=== PATIENT | male | born 1955 | race Caucasian/White ===

== ENCOUNTER 2020-01-22 06:33 | Outpatient (CLI) | payer MEDICARE, SELFPAY ==
[2020-01-22 08:10] LABS: Blood Urea Nitrogen 18 mg/dL (9-20); Calcium 9.1 mg/dL (8.4-10.2); Carbon Dioxide 29 mmol/L (22-30); Chloride 100 mmol/L (98-107); Estimated Glomerular Filt Rate > 60; Glucose 95 mg/dL (75-110); Potassium 4.2 mmol/L (3.4-5.0); Sodium 134 mmol/L (137-145)
[2020-01-22 08:54] LABS: Hemoglobin A1C 5.6 % (<5.7)
[2020-01-22 09:28] LABS: Folic Acid > 20.0 ng/mL (2.76->20); Vitamin B12 > 1000.0 pg/mL (239-931)
[2020-01-27 18:31] LABS: Homocysteine 7.9 umol/L (<11.4)
== END 2020-01-22 06:34 | disposition home or self-care (01) ==
PROVIDERS: PCP Internal Medicine; Visit Provider Internal Medicine
DX: R73.02 Impaired glucose tolerance (oral) (principal); E72.11 Homocystinuria; E53.8 Deficiency of other specified B group vitamins
CPT/HCPCS: 36415; 80048; 82607; 82746; 83036; 83090

== ENCOUNTER 2020-07-29 06:32 | Outpatient (CLI) | payer MEDICARE, SELFPAY ==
[2020-07-29 07:43] LABS: Alanine Aminotransferase 16 U/L (4-50); Albumin Level 4.1 g/dL (3.5-5.1); Alkaline Phosphatase 48 U/L (38-126); Anion Gap 4 mmol/L (8-16); Aspartate Amino Transferase 29 U/L (17-59); Bilirubin,Total 0.7 mg/dL (0.2-1.3); Blood Urea Nitrogen 16 mg/dL (9-20); Calcium 9.2 mg/dL (8.4-10.2); Carbon Dioxide 32 mmol/L (22-30); Chloride 100 mmol/L (98-107); Cholesterol 179 mg/dL (0-200); Estimated Glomerular Filt Rate > 60; Glucose 95 mg/dL (75-110); HDL Direct 50 mg/dL; Potassium 4.5 mmol/L (3.4-5.0); Sodium 136 mmol/L (137-145); Triglycerides 103 mg/dL (<150)
[2020-07-29 07:46] LABS: Hemoglobin A1C 5.3 % (<5.7)
[2020-07-29 07:54] LABS: LDL Cholesterol Direct 94 mg/dL
[2020-07-29 08:14] LABS: Prostate Specific Antigen 1.7 ng/mL (< OR = 4.0)
[2020-07-29 08:54] LABS: Vitamin B12 > 1000.0 pg/mL (239-931)
== END 2020-07-29 06:33 | disposition home or self-care (01) ==
PROVIDERS: PCP Internal Medicine; Visit Provider Nurse Practitioner
DX: Z12.5 Encounter for screening for malignant neoplasm of prostate (principal); E78.5 Hyperlipidemia, unspecified; R73.02 Impaired glucose tolerance (oral); R53.83 Other fatigue
CPT/HCPCS: 36415; 80053; 80061; 82607; 83036; 84153; G0103

== ENCOUNTER 2021-01-24 06:31 | Outpatient (CLI) | payer MEDICARE, SELFPAY ==
[2021-01-24 07:38] LABS: Anion Gap 3 mmol/L (8-16); Blood Urea Nitrogen 18 mg/dL (9-20); Carbon Dioxide 30 mmol/L (22-30); Chloride 104 mmol/L (98-107); Cholesterol 186 mg/dL (0-200); Estimated Glomerular Filt Rate > 60; Glucose 95 mg/dL (75-110); HDL Direct 50 mg/dL; Potassium 4.3 mmol/L (3.4-5.0); Sodium 137 mmol/L (137-145); Triglycerides 83 mg/dL (<150)
[2021-01-24 07:47] LABS: Hemoglobin A1C 5.6 % (<5.7)
[2021-01-24 07:49] LABS: LDL Cholesterol Direct 102 mg/dL
[2021-01-26 19:43] LABS: Homocysteine 7.7 umol/L (<11.4)
== END 2021-01-24 06:32 | disposition home or self-care (01) ==
PROVIDERS: PCP Internal Medicine; Visit Provider Internal Medicine
DX: R73.02 Impaired glucose tolerance (oral) (principal); E78.5 Hyperlipidemia, unspecified; E53.8 Deficiency of other specified B group vitamins; E72.11 Homocystinuria
CPT/HCPCS: 36415; 80048; 80061; 82607; 83036; 83090

== ENCOUNTER 2021-07-06 06:33 | Outpatient (CLI) | payer MEDICARE, SELFPAY ==
[2021-07-06 07:43] LABS: Hemoglobin A1C 5.6 % (<5.7)
[2021-07-06 07:45] LABS: Alanine Aminotransferase 18 U/L (4-50); Albumin Level 4.2 g/dL (3.5-5.1); Alkaline Phosphatase 54 U/L (38-126); Anion Gap 5 mmol/L (8-16); Aspartate Amino Transferase 30 U/L (17-59); Bilirubin,Total 0.9 mg/dL (0.2-1.3); Blood Urea Nitrogen 20 mg/dL (9-20); Carbon Dioxide 27 mmol/L (22-30); Chloride 101 mmol/L (98-107); Cholesterol 179 mg/dL (0-200); Estimated Glomerular Filt Rate 60; Glucose 98 mg/dL (65-110); HDL Direct 54 mg/dL; Potassium 4.4 mmol/L (3.4-5.0); Sodium 133 mmol/L (137-145); Triglycerides 65 mg/dL (<150)
[2021-07-06 07:56] LABS: LDL Cholesterol Direct 93 mg/dL
[2021-07-06 08:14] LABS: Prostate Specific Antigen 2.2 ng/mL (< OR = 4.0)
== END 2021-07-06 06:34 | disposition home or self-care (01) ==
PROVIDERS: PCP Internal Medicine; Visit Provider Internal Medicine
DX: E78.5 Hyperlipidemia, unspecified (principal); R73.02 Impaired glucose tolerance (oral); Z12.5 Encounter for screening for malignant neoplasm of prostate
CPT/HCPCS: 36415; 80053; 80061; 83036; 84153; G0103

== ENCOUNTER → 2021-10-13 11:35 | Outpatient (CLI) | payer MEDICARE, SELFPAY ==
--- NOTE | ~2021-10-13 | XR_ITS ---
Lumbar spine 3 views DATE: 10/13/2021 12:07 INDICATION: Radiculopathy TECHNIQUE: AP, lateral, coned lateral lumbosacral views COMPARISON: 01/25/2015 CT abdomen pelvis FINDINGS: There is mild dextro scoliosis. There is diffuse osteopenia. There is a transitional lumbosacral vertebra. There is moderately severe degenerative disc disease at L4-5 and on the left at L3-4. There is minimal retrolisthesis at L3-4. No fracture or bone destruction of the lumbar spine is evident. No spondylolisthesis. Sacroiliac join ts are intact. IMPRESSION: Osteopenia Mild dextroscoliosis Transitional lumbosacral vertebra Multi-level degenerative disc disease Reviewed, dictated and finalized at location A. 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
== END ==
PROVIDERS: Visit Provider Nurse Practitioner
DX: M54.10 Radiculopathy, site unspecified (principal); M85.88 Other specified disorders of bone density and structure, other site; M41.87 Other forms of scoliosis, lumbosacral region; M51.36 Other intervertebral disc degeneration, lumbar region
CPT/HCPCS: 72100

== ENCOUNTER 2021-12-05 09:19 | Outpatient (CLI) | payer MEDICARE, SELFPAY ==
--- NOTE | 2021-12-05 11:00 | NEURO_ITS ---
Impression: # Complains of twitching in the right lower extremity. # Normal nerve conduction study. # Normal needle/EMG exam with no fibs or fasciculation in muscles. # Clinical correlation recommended. Nerve Conduction Studies Anti Sensory Summary Table Stim Site NR Peak (ms) P-T Amp (?V) Site1 Site2 Delta-P (ms) Dist (cm) Tashi (m/s) Right Sup Fibular Anti Sensory (Ant Lat Mall) 14 cm 3.7 4.7 14 cm Ant Lat Mall 3.7 16.0 43 Right Sural Anti Sensory (Lat Mall) Calf 3.6 9.1 Calf Lat Mall 3.6 16.0 44 Motor Summary Table Stim Site NR Onset (ms) O-P Amp (mV) Site1 Site2 Delta-0 (ms) Dist (cm) Tashi (m/s) Right Peroneal Motor (Vastus Med) Ankle 4.4 2.4 Popit Ankle 8.2 39.0 48 Popit 12.6 1.7 Right Tibial Motor (Abd Leblanc Brev) Ankle 4.6 5.3 Knee Ankle 9.5 41.0 43 Knee 14.1 2.8 F Wave Studies NR F-Lat (ms) L-R F-Lat (ms) Right Peroneal (Mrkrs) (EDB) 50.88 Right Tibial (Mrkrs) (Abd Hallucis) 49.31 EMG Side Muscle Nerve Root Ins Act Fibs Amp Dur Recrt Comment Right AntTibialis Dp Br Fibular L4-5 Nml Nml Nml Nml Nml Right Gastroc Tibial S1-2 Nml Nml Nml Nml Nml Right Fibularis Long Sup Br Fibular L5-S1 Nml Nml Nml Nml Nml Right Flex Dig Long Tibial L5-S2 Nml Nml Nml Nml Nml Right Ext Dig Brev Dp Br Fibular L5, S1 Nml Nml Nml Nml Nml Right Ext Dig Long Dp Br Fibular L5-S1 Nml Nml Nml Nml Nml MTDD
== END 2021-12-05 09:20 | disposition home or self-care (01) ==
LOC: ANHNEURO 09:23
PROVIDERS: PCP Internal Medicine; Visit Provider Nurse Practitioner
DX: M54.10 Radiculopathy, site unspecified (principal)
CPT/HCPCS: 95886; 95908

== ENCOUNTER 2021-12-25 06:33 | Outpatient (CLI) | payer MEDICARE, SELFPAY ==
[2021-12-25 07:33] LABS: Anion Gap 4 mmol/L (8-16); Blood Urea Nitrogen 16 mg/dL (9-20); Calcium 8.5 mg/dL (8.4-10.2); Carbon Dioxide 29 mmol/L (22-30); Chloride 100 mmol/L (98-107); Estimated Glomerular Filt Rate > 60; Glucose 97 mg/dL (65-110); Sodium 133 mmol/L (137-145)
[2021-12-25 07:41] LABS: Hemoglobin A1C 5.4 % (<5.7)
[2021-12-27 20:26] LABS: Homocysteine 8.9 umol/L (<11.4)
== END 2021-12-25 06:34 | disposition home or self-care (01) ==
PROVIDERS: PCP Internal Medicine; Visit Provider Internal Medicine
DX: R73.02 Impaired glucose tolerance (oral) (principal); E72.11 Homocystinuria; E53.8 Deficiency of other specified B group vitamins
CPT/HCPCS: 36415; 80048; 82607; 83036; 83090

== ENCOUNTER 2022-02-01 08:14 | Outpatient (CLI) | payer MEDICARE, SELFPAY ==
[2022-02-01 08:54] LABS: Basophils Absolute Auto 0.1 K/mm3 (0.0-0.1); Basophils Percent Auto 0.9 % (0.2-1.2); Eosinophils Absolute Auto 0.5 K/mm3 (0-0.3); Eosinophils Percent Auto 6.5 % (0-4.4); Hematocrit 44.3 % (42.0-52.0); Hemoglobin 14.5 g/dL (14.0-18.0); Immature Granulocyte Absolute 0.03 K/mm3 (0.00-0.031); Immature Granulocyte Percent A 0.4 % (0-0.5); Lymphocytes Absolute Auto 2.63 K/mm3 (0.9-3.2); Lymphocytes Percent Auto 32.5 % (18.3-44.2); Mean Corpuscular HGB Conc 32.7 g/dl (32-36); Mean Corpuscular Hemoglobin 30.2 pg (26-34); Mean Corpuscular Volume 92.3 fl (80-100); Mean Platelet Volume 9.9 fl (7.4-10.4); Monocytes Absolute Auto 0.9 K/mm3 (0.1-0.6); Monocytes Percent Auto 10.5 % (2.6-8.5); Neutrophils Percent Auto 49.2 % (45.5-73.1); Platelet Count Result 242 k/mm3 (150-375); Red Cell Distribution Width 12.4 % (11.5-14.5); White Blood Count 8.1 K/mm3 (4.5-10.0)
== END 2022-02-01 08:15 | disposition home or self-care (01) ==
LOC: ANHSURGERY 08:18
PROVIDERS: PCP Internal Medicine; Visit Provider Surgery
DX: Z01.818 Encounter for other preprocedural examination (principal); K40.90 Unilateral inguinal hernia, without obstruction or gangrene, not specified as recurrent; K42.9 Umbilical hernia without obstruction or gangrene
CPT/HCPCS: 36415; 85025; 86850; 86900; 86901

== ENCOUNTER 2022-02-05 01:12 | Day surgery (SDC) | payer MEDICARE, SELFPAY ==
--- NOTE | 2022-01-31 10:16 | PC.NURSE ---
Report to the Outpatient Waiting Room, entrance under the green pavilion located off [facility], at time __0730 on date 02/05/22 . OR Time: __929 . - You and your visitor will be asked a series of questions to screen for COVID 19 for your protection. - Only one visitor is allowed at this time. - The patient visitor is requested to leave or wait in car when not with patient. - A mask is required within the hospital. Patients may have clear liquids (water, carbonated beverages, clear teas, apple juice) until 3 hours prior to surgery with a maximum of 20 ounces. - No food from midnight until time of surgery - Infants may have breast milk until 4 hours before surgery, infant formula 6 hours prior to surgery. - Children will be allowed to drink immediately following surgery. If applicable, please bring a bottle or sippy cup to assist with drinking. Juice, water, soda, and popsicles are readily available. For infants on formula, please bring formula the day of surgery. Pacifiers are allowed. Take the following medications with a SIP of water the morning of surgery: ____NONE Medications to discontinue per physician ALL VITAMINS AND SUPPLEMENTS 3 DAYS PRE OP Date to take last dose___02/01/22 PT STATES TOOK XARELTO 01/30/22 (TRAVELING/FLYING) DR SIMON AWARE. Please no make-up, nail welsh, hairspray, perfume, deodorant, or body powder the day of surgery. No jewelry (including any body piercings) or valuables the day of surgery, leave them at home. Please take a shower or bath the night before, or the morning of, surgery with an antibacterial soap. Wear comfortable, loose fitting clothing. Children are encouraged to wear pajamas. - Jewelry must be removed prior to entering the operating room. Rings and piercings that are not removed may be cut off. - The hospital will not accept responsibility for valuables. - Please leave all valuables, including medications, at home the day of surgery. HIBICLENS SHOWER MORNING OF SURGERY If you are going home after surgery, a licensed truck driver instructor must drive you home. - NO public transportation without another adult. - We recommend that an adult stay with you for 24 hours following discharge. - We also recommend that you do not drive, make important decision, drink alcoholic beverages, or take any drugs that were not prescribed by your health care provider for at least 24 hours after your discharge time. For Pediatric surgeries, we recommend two adults accompany the child home (only one inside the building at this time). Follow any additional instructions given to you from your surgeon. If you or anyone in your household have experienced Covid symptoms in the past week, please notify your surgeon or the nurse liaison at the phone number below for possible testing. Telephone instructions given to __PATIENT and asked if any additional questions and then verbalized understanding. Patient advised to call surgeon office or pre surgery nurse liaison [phone] if any additional questions.
[2022-01-31 10:33] VITALS: BMI 22.7
--- NOTE | 2022-02-04 21:16 | PM.HPGS ---
History of Present Illness History of Present Illness Consent: Risks, benefits, and alternatives of a left inguinal repair with mesh and open umbilical hernia repair have been discussed and questions answered. Patient agrees to proceed with procedure. Chief complaint: left inguinal hernia, umbilical hernia Narrative: Mr Tomlin is a 66 year old White male that presented to the office recently at the request of Dr Gillespie for an evaluation of a inguinal hernia. Patient reports that he first noticed pain in his left groin about 7-9 months ago. The pain was occasional and random. He reports that about 5 weeks ago he noticed a bulge for the first time when he was at the gym. He reports that the workout was a very heavy workout that lasted a few hours. He reports that he has noticed that activity makes the bulge worse. He does notice that when he puts ice over the bulge that the bulge reduces in size. He notices that the bulge becomes more prominent when standing all the time. Patient reports that he did have a history of a pulmonary embolism 5 years ago and takes Xarelto when he travels. He does not take this routinely He called the office one week ago because he had traveled and taken the Xarelto, but he was able to be off of it 48 hrs. before this planned surgery. Review of Systems Review of Systems: All systems reviewed & are unremarkable except as noted in HPI and below (HPI) Constitutional: Constitutional: Reports as per HPI, Denies chills and Denies fever(s) Eyes: Eyes: Reports no additional eye complaints ENT: Reports Normal hearing present and Denies dizziness Cardiovascular: Cardiovascular: Reports no additional cardiovascular complaints, Denies chest pain and Denies irregular heart rhythm Comments: Hx of a Pulmonary embolus in the past after traveling. Respiratory: Respiratory: Reports no additional respiratory complaints Gastrointestinal: Gastrointestinal: Reports no additional gastrointestinal complaints, Denies abdominal pain and Denies bloating Genitourinary: Genitourinary: Denies hematuria Musculoskeletal: Musculoskeletal: Denies back pain Integumentary/Breasts: Skin/Breast: Reports system reviewed and no additional complaints, except as docu Neurologic: Reports Normal hearing present, Denies Abnormal speech present, Denies confusion and Denies dizziness Psychiatric: Psychiatric: Reports no additional psychiatric complaints and Denies confusion Endocrine: Endocrine: Reports no additional endocrine complaints Hematologic/Lymphatic: Hematologic/Lymphatic: Denies easy bleeding and Denies easy bruising Allergic/Immunologic: Allergic/Immunologic: Reports no additional allergic/immunologic complaints [facility] Past Medical History Medical History Asthma History of blood clots Kidney stones Surgical History Surgical History History of ankle surgery RIGHT ANKLE Family History Family History Mother No problems noted. Father Family history of Alzheimer's disease Acute myocardial infarction Malignant neoplasm of prostate Lung cancer Sibling Patient's sister is in good health Other Family history of malignant neoplasm Social History Social History Smoking status: Never smoker Second hand tobacco smoke exposure: No Alcohol intake: current Drinks per week: 3 Alcohol use details: social Substance use: never Substance use type: does not use Living arrangements: alone Spiritual care concerns: No Meds Home Medications and Allergies Home Medications Medication Instructions Recorded Confirmed Type aspirin 81 mg tablet,delayed 81 mg PO DAILY 10/07/19 02/05/22 History release folic acid 1 mg tablet 1 mg PO DAILY 02/01/21
[2022-02-05] VITALS (10 sets, daily range): BP systolic 115–142; BP diastolic 62–89; PULSE 61–73; RESP 12–20; TEMP 36.1; O2SAT 100
[2022-02-05] MEDS: ACETAMINOPHEN 500 MG TABLET 1000 MG PO (09:09)
[2022-02-05] MEDS: KETOROLAC 15 MG/ML VIAL (*BKC) IV PUSH (09:10)
[2022-02-05] MEDS: LACTATED RINGERS 1,000 ML 30 ML IV CONT ×3 (09:10→13:20)
--- NOTE | 2022-02-05 09:41 | WPDHPUPDATE1 ---
History and Physical Update Update Date/Time: 02/05/22 09:41 History and Physical has been reviewed, including an updated exam of the patient. There are NO changes in the patient's condition. Risks, benefits, and alternatives have been discussed and questions answered. Patient agrees to proceed with procedure.
--- NOTE | 2022-02-05 09:42 | WPDANESEPPF ---
Anes - Initial Pre Proc Eval Procedure: Operation Date: 02/05/22 10:30 Proposed Procedures p Laparoscopic Left Inguinal Hernia Repair with Mesh, - Salvador Castano MD s Suture Repair of Small Umbilical Hernia - Salvador Castano MD Date/Time: 02/05/22 09:42 Surgeon: Salvador Castano MD Pre Op Diagnosis: left inguinal hernia, umbilical hernia Patient Data Age: 66 Gender: M Height: 1.7 m Weight: 67.15 kg Last Vital Signs Temp 36.1 C L 02/05/22 08:35 Pulse 73 02/05/22 08:35 Resp 18 02/05/22 08:35 BP 120/78 02/05/22 08:35 Pulse Ox 100 02/05/22 08:35 Allergies Allergy/AdvReac Type Severity Reaction Status Date / Time [place] Allergy Unknown Sneezing Uncoded 02/05/22 08:47 Home Medications Medication Instructions Recorded Confirmed Type aspirin 81 mg tablet,delayed 81 mg PO DAILY 10/07/19 02/05/22 History release folic acid 1 mg tablet 1 mg PO DAILY 02/01/21 02/05/22 History sildenafil 100 mg tablet 100 mg PO DAILY PRN #12 tablet 03/29/21 02/05/22 Rx valacyclovir 1 gram tablet 2,000 mg PO Q12H PRN #30 tablet 11/07/21 02/05/22 Rx multivitamin 1 tablet PO DAILY 01/03/22 02/05/22 History omega 7-qhj-bpa-fish oil 60 mg-90 1 cap PO DAILY 01/03/22 02/05/22 History mg-500 mg capsule rivaroxaban 2.5 mg tablet 2.5 mg PO BID 01/03/22 02/05/22 History Patient hx anesthesia problems: none Family hx anesthesia problems: none Results Review: All pre-operative results and documents have been reviewed as part of the pre-operative evaluation. [facility] Past Medical History Medical History Asthma History of blood clots Kidney stones Surgical History Surgical History History of ankle surgery RIGHT ANKLE Family History Family History Mother No problems noted. Father Family history of Alzheimer's disease Acute myocardial infarction Malignant neoplasm of prostate Lung cancer Sibling Patient's sister is in good health Other Family history of malignant neoplasm Social History Social History Smoking status: Never smoker Second hand tobacco smoke exposure: No Alcohol intake: current Drinks per week: 3 Alcohol use details: social Substance use: never Substance use type: does not use Living arrangements: alone Spiritual care concerns: No Anes - Eval Final PreProcedure Day of Procedure 02/05/22 09:42 Patient weight: normal Heart: regular rate and rhythm Lungs: clear to auscultation Airway: Mallampati scale class II Neurological: alert and oriented Last oral intake: >/= 8 hours ASA classification: II Emergent: no Anesthetic plan: proceed Anesthesia type and monitoring: general ETT and standard monitoring Results Review: All pre-operative results and documents have been reviewed as part of the pre-operative evaluation. Informed Consent: The patient's anesthetic plan and its attendant risks and benefits were discussed with the patient/family/POA. Questions were solicited and answers provided to the satisfaction of the patient/family/POA.
[2022-02-05] MEDS: ceFAZolin 2 GM/D5W 50 ML 2 GM/50 ML BAG IVPB (09:58)
[2022-02-05] MEDS: LIDO 2%/EPINEPHRINE 1:100,000 20 ML VIAL INFILTRATE (10:04)
--- NOTE | 2022-02-05 14:16 | W.PM.PROC2 ---
Procedure Note - Detailed Date of Procedure 02/05/22 Pre-op Diagnosis left inguinal hernia, umbilical hernia Post-op Diagnosis Other (1. unilateral left Direct & Indirect inguinal hernia. 2. umbilical hernia 3. Asymptomatic hypospadias) Procedure Performed 1. laparoscopic totally extraperitoneal left inguinal hernia repair with mesh 2. Open umbilical hernia repair with sutures Surgeon Salvador Castano MD Screen Writer LULI Godinez ,[place] first sampler Anesthesia General Indications Bulging and pain on the left groin. Also on office exam a small umbilical hernia was noted and since it was right where we needed to make one of the incisions to fix his left inguinal hernia, the patient wanted to have it repaired at the same time. Findings Patient had a small approximately 8 mm umbilical fascial defect with some preperitoneal fat coming up into the hernia. Patient had a small direct and a larger indirect left inguinal hernia. Upon placing the Mack catheter was noted that the patient has some element of hypospadias. Description of Procedure After appropriate marking of the operative site prior to surgery, the patient was taken to the operating room. After induction of adequate general endotracheal anesthesia by [facility] staff, the patient was carefully prepped and draped in a sterile fashion. Prior to prep and drape a Mack catheter was placed to keep the bladder collapsed. (In this patient it was noted that the meatus was quite inferior. He had not previously told me that he knew that he had some element of hypospadia CIS. Because of this I asked 1 of our urologist to step in and check the Mack catheter and the tip of the penis. He agreed that it was high post medius and that there was a small pit where the opening often would be but at the patient's current age of 66 without previous problems nothing needed to be done). A time-out was performed confirming the procedure and site of surgery on the left. Following this, local anesthetic was infiltrated into the umbilical area and a horizontal incision was made through the umbilicus right over the center of the obvious small hernia at its base. We then carefully dissected the upper part of the hernia sac from surrounding subcutaneous tissues and skin. Then we left this alone and used S retractors to expose the anterior rectus sheath just to the left of midline at the level of this incision. I carefully dissected down to the the anterior rectus sheath on the left and then made a 1 cm vertical slit in the fascia just off the midline. The rectus muscle was retracted to left and then just in front of the posterior rectus sheath, a round dissecting balloon was passed onto the pubic bone. After placing slight pressure on the right groin area, this was insufflated with 20 pumps, while watching with the 0 degree laparoscope. It appeared that I was in the proper plane. Following this, the dissecting balloon was removed and replaced by a 100 mm Nguyen cannula with a circular 30 cc conforming balloon. Following this, the 0 degree laparoscope was used to carefully place two 5mm [employer] slim trocars, just to the right of midline. One suprapubic and other one skilled nursing between the umbilicus and the pubic bone. Then tedious dissection occurred in the preperitoneal space using blunt and sharp dissection exposing the James's ligament, the cord structures, the muscular tissue anteriorly, and the retroperitoneum. there appeared to be both a small direct hernia medial to the epigastric vessels and a medium-sized indirect hernia sac exiting lateral to the epigastric vessels. This Bladder indirect sac was then able to be dissected back and we could visualize the posterior peritoneum. I then dissected up to the level of the umbilicus and it was ready for mesh placement. inspecting the area there appeared to be some clotted blood pulling posteriorly. Therefore a 5 mm scope was obtained we placed this through 1 of
== END 2022-02-05 15:40 | disposition home or self-care (01) ==
PROVIDERS: PCP Internal Medicine; Visit Provider Surgery
PROC: (CPT 49650; principal; 2022-02-05 10:30)
PROC: (CPT 49650; 2022-02-05 10:30)
DX: K40.90 Unilateral inguinal hernia, without obstruction or gangrene, not specified as recurrent (principal); K42.9 Umbilical hernia without obstruction or gangrene; Q54.1 Hypospadias, penile; Z79.82 Long term (current) use of aspirin; J45.909 Unspecified asthma, uncomplicated; M47.9 Spondylosis, unspecified; Z86.711 Personal history of pulmonary embolism
CPT/HCPCS: 49650; 36415; 85025; 86850; 86900; 86901; 88302; A9270; C1727; C1781; J0330; J0690; J1170; J1885; J2250; J2704; J2710; J3010; J7120

== ENCOUNTER 2022-03-12 07:04 | Outpatient (CLI) | payer MEDICARE, SELFPAY ==
[2022-03-12 08:21] LABS: Prostate Specific Antigen 2.6 ng/mL (< OR = 4.0)
== END 2022-03-12 07:05 | disposition home or self-care (01) ==
LOC: ANHLAB 07:06
PROVIDERS: PCP Internal Medicine; Visit Provider Urology
DX: Z12.5 Encounter for screening for malignant neoplasm of prostate (principal)
CPT/HCPCS: 36415; 84153; G0103

== ENCOUNTER 2022-04-30 09:00 | Outpatient (RCR) | payer MEDICARE, SELFPAY ==
--- NOTE | 2022-04-09 09:31 | PTOPEVAL ---
PHYSICAL THERAPY EVALUATION AND PLAN OF CARE Thank you for referring Rasheed Tomlin to [facility].? The patient is scheduled to be seen for therapy? 1x/week for 3weeks. Please review, sign, date and return this plan of care ANITA. I agree with and certify that the following plan of care is medically necessary. Referring Physician Date Attending Provider: Gautam Gillespie, Diagnosis right radicular pain Onset 1 year ago Subjective Information States that he has a spark Query Text:As Reported By Patient/ like pain in the right pimentel Family area. An x-ray shows DDD at L4 -5. The pain comes and goes. Sometimes is there all day despite activity or movement and sometimes is gone. On average experiences this pain about 1 day a week. Lumbar ROM Lumbar Flexion Active Ankle Query Text:Hands to: Lumbar Extension (0-40) 20 Query Text:Active in Degrees Lumbar Comments decreased segmental mobility with extension; flexion has a mild right lateral lean Gross Lower Extremity Strength left single leg heel raise 15/ 20 right single leg heel raise: 15/20 grossly 4 to 4+/5 hip flexion, knee flexion and extension, and abduction; right glute max poor activation with compensation to overuse of QL and multifidi; with cues and education patient was able to engage glute max to perform prone hip extension Palpation increased muscle tension and bulking to right QL and multifidi and paraspinals compared to left; decreased mobility of right SIJ and L3-5 PT Clinical Summary Rasheed is a 66 yo male presenting to outpatient physical therapy with c/o chronic right LE radicular symptoms. Symptoms are stable and moderate. Rasheed demonstrates impaired mechanics of lumbar spine with deviations in lumbar ROM and he demonstrates poor motor
--- NOTE | 2022-04-30 09:24 | PTOPEVAL ---
PHYSICAL THERAPY DISCHARGE NOTE Thank you for referring Rasheed Tomlin to [facility].? Please review, sign, date and return this plan of care ANITA. I agree with and certify that the following plan of care is medically necessary. Referring Physician Date Attending Provider: Gautam Gillespie DO Diagnosis right radicular pain Onset 1 year ago Subjective Information reports he is doing very well. Query Text:As Reported By Patient/ reports on lower leg or ipmentel Family pain. continues to have no back pain. States he is doing well with his exercises. Pain Score 0: Self Report Lumbar ROM Lumbar Flexion Active Floor Query Text:Hands to: Lumbar Extension (0-40) 30 Query Text:Active in Degrees Lumbar Comments flexion is neutral and normal Lower Extremity Muscle Strength Testing General Lower Extremity Strength Gross Lower Extremity Strength left single leg heel raise 15/ 20 right single leg heel raise: 15/20 grossly 5/5 hip flexion, knee flexion and extension, and abduction; right glute max: able to isolate and hold to 4- /5 resistance. Palpation improved mobility of lumbar spine; improved tissue quality and decreased muscle bulking compared to initial visit PT Clinical Summary Rasheed is a 66 yo male presenting to outpatient physical therapy with c/o chronic right LE radicular symptoms. He reports no symptoms for 3 weeks and is confident in HEP. He demonstrates improved ability to activate right glutes and demonstrates improved movement patterns of lumbar spine. I recommend d/c from PT at this time with plan to continue HEP
== END 2022-04-30 11:04 | disposition home or self-care (01) ==
LOC: ANHPT 09:00
PROVIDERS: PCP Internal Medicine; Visit Provider Internal Medicine
DX: M47.9 Spondylosis, unspecified (principal)
CPT/HCPCS: 97110; 97112; 97140; 97161; 97530

== ENCOUNTER 2022-07-03 06:35 | Outpatient (CLI) | payer MEDICARE, SELFPAY ==
[2022-07-03 07:34] LABS: Alanine Aminotransferase 17 U/L (6-50); Albumin Level 4.2 g/dL (3.5-5.1); Alkaline Phosphatase 56 U/L (38-126); Anion Gap 9 mmol/L (8-16); Aspartate Amino Transferase 26 U/L (17-59); Bilirubin,Total 0.8 mg/dL (0.2-1.3); Blood Urea Nitrogen 20 mg/dL (9-20); Calcium 9.1 mg/dL (8.4-10.2); Carbon Dioxide 28 mmol/L (22-30); Chloride 100 mmol/L (98-107); Cholesterol 170 mg/dL (0-200); Estimated Glomerular Filt Rate 60; Glucose 100 mg/dL (65-110); HDL Direct 50 mg/dL; Potassium 4.4 mmol/L (3.4-5.0); Sodium 137 mmol/L (137-145); Triglycerides 88 mg/dL (<150)
[2022-07-03 07:45] LABS: LDL Cholesterol Direct 80 mg/dL
[2022-07-03 08:14] LABS: Hemoglobin A1C 5.8 % (<5.7)
[2022-07-03 08:29] LABS: Prostate Specific Antigen 2.6 ng/mL (< OR = 4.0)
[2022-07-06 06:21] LABS: Homocysteine 9.8 umol/L (<11.4)
== END 2022-07-03 06:36 | disposition home or self-care (01) ==
LOC: ANHLAB 06:37
PROVIDERS: PCP Internal Medicine; Visit Provider Internal Medicine
DX: E53.8 Deficiency of other specified B group vitamins (principal); Z12.5 Encounter for screening for malignant neoplasm of prostate; E72.11 Homocystinuria; R73.02 Impaired glucose tolerance (oral); E78.5 Hyperlipidemia, unspecified
CPT/HCPCS: 36415; 80053; 80061; 82607; 83036; 83090; 84153; G0103

== ENCOUNTER 2023-01-14 06:35 | Outpatient (CLI) | payer MEDICARE, SELFPAY ==
[2023-01-14 07:19] LABS: Alanine Aminotransferase 18 U/L (6-50); Albumin Level 4.2 g/dL (3.5-5.1); Alkaline Phosphatase 43 U/L (38-126); Anion Gap 3 mmol/L (8-16); Aspartate Amino Transferase 28 U/L (17-59); Bilirubin,Total 0.6 mg/dL (0.2-1.3); Blood Urea Nitrogen 19 mg/dL (9-20); Calcium 8.6 mg/dL (8.4-10.2); Carbon Dioxide 28 mmol/L (22-30); Chloride 101 mmol/L (98-107); Estimated Glomerular Filt Rate > 60; Glucose 97 mg/dL (65-110); Potassium 4.1 mmol/L (3.4-5.0); Sodium 132 mmol/L (137-145)
[2023-01-14 07:35] LABS: Hemoglobin A1C 5.6 % (<5.7)
== END 2023-01-14 06:36 | disposition home or self-care (01) ==
PROVIDERS: Nurse Practitioner; PCP Family Medicine; Visit Provider Family Medicine
DX: R73.02 Impaired glucose tolerance (oral) (principal)
CPT/HCPCS: 36415; 80053; 83036

== ENCOUNTER 2023-04-12 13:42 | Outpatient (CLI) | payer MEDICARE, SELFPAY ==
--- NOTE | ~2023-04-12 | MR_ITS ---
EXAMINATION: MR lumbar spine wo con DATE: 04/12/2023 14:18 INDICATION: Low back pain TECHNIQUE: Magnetic resonance imaging (MRI) of the lumbar spine was performed without intravenous con trast. Sequences included sagittal T2-weighted FSE, sagittal T2-weighted FS FSE, sagittal T1-weighted FSE, and axial T2-weighted FSE. COMPARISON: None FINDINGS: Transitional L5 segment, sacralized on the left. 15 degree lumbar dextroscoliosis. Sagittal alignment is normal. Vertebral body heights are normal. Asymmetric moderate to severe disc height loss with as sociated degenerative fibrovascular endplate changes on the left at L3-L4 and on the right at L4-L5. The remaining disc heights are normal. T1 and T2 hyperintense hemangioma at the left side of T12. Mar row signal is otherwise normal. The conus medullaris terminates at L1-L2. There is normal signal in t he caudal spinal cord. Paravertebral soft tissues are unremarkable. The following disc levels are spe cifically discussed: T12-L1: The disc does not extend beyond the endplate margin. There is mild bilateral facet joint oste oarthritis. There is no neural foraminal stenosis. There is no central canal stenosis. L1-L2: Disc is mildly bulging. There is mild bilateral facet joint osteoarthritis. There is a bilater al neural foraminal stenosis. There is no central canal stenosis. L2-L3: Mild to moderate diffuse disc bulge. There is altered left and moderate right facet joint oste oarthritis. There is mild right and mild to moderate left neural foraminal stenosis. There is mild ce ntral canal stenosis. L3-L4: Disc is bulging with annular fissure. There is mild hypertrophy of the left ligamentum flavum. There is mild right and moderate left facet joint osteoarthritis. There is moderate left and mild t o moderate right neural foraminal stenosis. There is mild central canal stenosis. L4-L5: Disc is bulging with annular fissure. There is mild left and mild to moderate right facet join t osteoarthritis. There is moderate bilateral neural foraminal stenosis. There is mild central canal stenosis. L5-S1: The disc does not extend beyond the endplate margin. There is mild right and moderate left fac et joint osteoarthritis. There is no neural foraminal stenosis. There is no central canal stenosis. IMPRESSION: 1. Mild lumbar dextroscoliosis with moderate to severe lower lumbar spondylosis. Reviewed, dictated and finalized at location A. IMPRESSION: 1. Mild lumbar dextroscoliosis with moderate to severe lower lumbar spondylosis .
== END 2023-04-12 13:43 | disposition home or self-care (01) ==
PROVIDERS: PCP Family Medicine; Visit Provider Family Medicine
DX: M41.86 Other forms of scoliosis, lumbar region (principal); M47.816 Spondylosis without myelopathy or radiculopathy, lumbar region
CPT/HCPCS: 72148

== ENCOUNTER 2023-04-30 09:35 | Outpatient (CLI) | payer MEDICARE, SELFPAY ==
--- NOTE | 2023-05-02 12:30 | WPDHOLTEREM ---
Holter/Event Monitor Holter/Event Monitor Date of procedure: 04/30/23 Holter/Event Procedure: 48 Hr Holter Monitor Indications: PVC's Conclusion: 1. 48 hour holter monitor on 04/30/23. 2. Underlying rhythm is sinus rhythm. HR range 51-122 bpm; average HR 75 bpm. 3. There are 56 premature supraventricular complexes and 1 supraventricular couplet and 1 supraventricular triplet. No supraventricular tachycardia. 4. There are 13,832 ventricular complexes, 679 ventricular couplets, 25 ventricular triplets, 28,328 ventricular bigeminy and 2,084 ventricular trigeminy. No ventricular tachycardia. 5. No sinoatrial or atrioventricular blocks. No significant pauses greater than 2 seconds. 6. No symptoms available for correlation.
== END 2023-04-30 09:36 | disposition home or self-care (01) ==
LOC: ANHCARD 09:36
PROVIDERS: PCP Family Medicine; Visit Provider Family Medicine
DX: I49.3 Ventricular premature depolarization (principal); I49.8 Other specified cardiac arrhythmias
CPT/HCPCS: 93225; 93226

== ENCOUNTER 2023-06-27 06:33 | Outpatient (CLI) | payer MEDICARE, SELFPAY ==
[2023-06-27 07:20] LABS: Anion Gap 5 mmol/L (8-16); Blood Urea Nitrogen 25 mg/dL (9-20); Calcium 9.2 mg/dL (8.4-10.2); Carbon Dioxide 28 mmol/L (22-30); Chloride 102 mmol/L (98-107); Estimated Glomerular Filt Rate 60; Glucose 95 mg/dL (65-110); Potassium 4.2 mmol/L (3.4-5.0); Sodium 135 mmol/L (137-145)
== END 2023-06-27 06:34 | disposition home or self-care (01) ==
LOC: ANHLAB 06:34
PROVIDERS: PCP Family Medicine; Visit Provider Family Medicine
DX: E87.1 Hypo-osmolality and hyponatremia (principal)
CPT/HCPCS: 36415; 80048

== ENCOUNTER 2023-07-30 09:02 | Outpatient (CLI) | payer MEDICARE, SELFPAY ==
[2023-07-30 09:28] LABS: Hematocrit 43.8 % (42.0-52.0); Hemoglobin 14.4 g/dL (14.0-18.0); Mean Corpuscular HGB Conc 32.9 g/dl (32-36); Mean Corpuscular Hemoglobin 30.1 pg (26-34); Mean Corpuscular Volume 91.6 fl (80-100); Mean Platelet Volume 10.4 fl (7.4-10.4); Platelet Count Result 224 k/mm3 (150-375); Red Blood Count 4.78 M/mm3 (4.6-6.20); Red Cell Distribution Width 12.1 % (11.5-14.5); White Blood Count 6.4 K/mm3 (4.5-10.0)
[2023-07-30 09:37] LABS: Alanine Aminotransferase 18 U/L (6-50); Albumin Level 4.3 g/dL (3.5-5.1); Alkaline Phosphatase 42 U/L (38-126); Anion Gap 8 mmol/L (8-16); Aspartate Amino Transferase 27 U/L (17-59); Bilirubin,Total 0.8 mg/dL (0.2-1.3); Blood Urea Nitrogen 20 mg/dL (9-20); Calcium 9.4 mg/dL (8.4-10.2); Carbon Dioxide 26 mmol/L (22-30); Chloride 101 mmol/L (98-107); Cholesterol 179 mg/dL (0-200); Estimated Glomerular Filt Rate > 60; Glucose 102 mg/dL (65-110); HDL Direct 45 mg/dL; Potassium 4.6 mmol/L (3.4-5.0); Sodium 135 mmol/L (137-145); Triglycerides 107 mg/dL (<150)
[2023-07-30 09:48] LABS: LDL Cholesterol Direct 89 mg/dL
[2023-07-30 10:08] LABS: Prostate Specific Antigen 3.2 ng/mL (< OR = 4.0)
== END 2023-07-30 09:03 | disposition home or self-care (01) ==
LOC: ANHLAB 09:02
PROVIDERS: PCP Family Medicine; Visit Provider Family Medicine
DX: E78.5 Hyperlipidemia, unspecified (principal); Z12.5 Encounter for screening for malignant neoplasm of prostate
CPT/HCPCS: 36415; 80053; 80061; 84153; 85027; G0103

== ENCOUNTER 2024-01-29 01:22 | Day surgery (SDC) | payer MEDICARE, SELFPAY ==
[2024-01-17 13:11] VITALS: BMI 22.1
[2024-01-29 10:21] VITALS: BP 136/92; PULSE 91; RESP 20; TEMP 36.4; O2SAT 100
[2024-01-29] MEDS: LACTATED RINGERS 1,000 ML 150 ML IV CONT (10:30)
--- NOTE | 2024-01-29 10:40 | WPDANESEPPF ---
Anes - Initial Pre Proc Eval Procedure: Operation Date: 01/29/24 11:30 Proposed Procedures p Colonoscopy - Andrade Coronado MD Date/Time: 01/29/24 10:40 Surgeon: Andrade Coronado MD Pre Op Diagnosis: Hemorrhage of anus and rectum Patient Data Age: 68 Gender: M Height: 1.73 m Weight: 66.1 kg Last Vital Signs Temp 97.6 F 01/29/24 10:21 Pulse 91 01/29/24 10:21 Resp 20 01/29/24 10:21 BP 136/92 H 01/29/24 10:21 Pulse Ox 100 01/29/24 10:21 O2 Del Method Room Air 01/29/24 10:21 Allergies Allergy/AdvReac Type Severity Reaction Status Date / Time [place] Allergy Unknown Sneezing Uncoded 01/29/24 10:20 Home Medications Medication Instructions Recorded Confirmed Type valacyclovir 1 gram tablet 2,000 mg PO Q12H PRN cold sores 11/07/21 01/17/24 Rx #30 tabs multivitamin 1 tablet PO DAILY 01/03/22 01/17/24 History omega 2-kds-bpr-fish oil 60 mg-90 1 cap PO DAILY 01/03/22 01/17/24 History mg-500 mg capsule (Fish Oil) sildenafil 100 mg tablet (Viagra) 100 mg PO DAILY PRN sexual 12/03/22 01/17/24 Rx activity #12 tabs rivaroxaban 2.5 mg tablet (Xarelto) 2.5 mg PO BID #5 tabs 12/05/23 01/17/24 Rx Patient hx anesthesia problems: none Family hx anesthesia problems: none Results Review: All pre-operative results and documents have been reviewed as part of the pre-operative evaluation. [facility] Past Medical History Medical History Asthma History of blood clots Kidney stones Surgical History Surgical History History of ankle surgery RIGHT ANKLE Hx of left inguinal hernia repair 02/05/2022 Hx of umbilical hernia repair 02/05/2022 Family History Family History Mother No problems noted. Father Family history of Alzheimer's disease Acute myocardial infarction Malignant neoplasm of prostate Lung cancer Sibling Patient's sister is in good health Other Family history of malignant neoplasm Social History Social History Smoking status: Never smoker Second hand tobacco smoke exposure: No Alcohol intake: current Drinks per week: 1 Alcohol use details: social Substance use: never Substance use type: does not use Lack of Transportation: No Lack of Food: Never True Current Housing: I Have Housing Concerned About Future Housing: No Difficulty Paying Gas/Electric Bills: No Difficulty Paying for Meds: No Currently Unemployed: No Education: Decline to Answer Difficulty w/ Childcare or Family Care: No Living arrangements: alone Spiritual care concerns: No Anes - Eval Final PreProcedure Day of Procedure 01/29/24 10:40 Patient weight: normal Heart: regular rate and rhythm Lungs: clear to auscultation Airway: Mallampati scale class II Neurological: alert and oriented Last oral intake: >/= 8 hours ASA classification: II Emergent: no Anesthetic plan: proceed Anesthesia type and monitoring: general GIVS and standard monitoring Results Review: All pre-operative results and documents have been reviewed as part of the pre-operative evaluation. Informed Consent: The patient's anesthetic plan and its attendant risks and benefits were discussed with the patient/family/POA. Questions were solicited and answers provided to the satisfaction of the patient/family/POA.
--- NOTE | 2024-01-29 10:45 | PM.HPGS ---
History of Present Illness History of Present Illness Consent: Risks, benefits, and alternatives have been discussed and questions answered. Patient agrees to proceed with procedure. Chief complaint: Hemorrhage of anus and rectum Narrative: Rasheed Tomlin is a 68 year old male with episode of rectal bleed weeks ago, last colonoscopy 2014 Review of Systems Review of Systems: All systems reviewed & are unremarkable except as noted in HPI and below PMFSH Past Medical History Medical History Asthma History of blood clots Kidney stones Surgical History Surgical History History of ankle surgery RIGHT ANKLE Hx of left inguinal hernia repair 02/05/2022 Hx of umbilical hernia repair 02/05/2022 Family History Family History Mother No problems noted. Father Family history of Alzheimer's disease Acute myocardial infarction Malignant neoplasm of prostate Lung cancer Sibling Patient's sister is in good health Other Family history of malignant neoplasm Social History Social History Smoking status: Never smoker Second hand tobacco smoke exposure: No Alcohol intake: current Drinks per week: 1 Alcohol use details: social Substance use: never Substance use type: does not use Lack of Transportation: No Lack of Food: Never True Current Housing: I Have Housing Concerned About Future Housing: No Difficulty Paying Gas/Electric Bills: No Difficulty Paying for Meds: No Currently Unemployed: No Education: Decline to Answer Difficulty w/ Childcare or Family Care: No Living arrangements: alone Spiritual care concerns: No Meds Home Medications and Allergies Home Medications Medication Instructions Recorded Confirmed Type valacyclovir 1 gram tablet 2,000 mg PO Q12H PRN cold sores 11/07/21 01/17/24 Rx #30 tabs multivitamin 1 tablet PO DAILY 01/03/22 01/17/24 History omega 5-ria-ese-fish oil 60 mg-90 1 cap PO DAILY 01/03/22 01/17/24 History mg-500 mg capsule (Fish Oil) sildenafil 100 mg tablet (Viagra) 100 mg PO DAILY PRN sexual 12/03/22 01/17/24 Rx activity #12 tabs rivaroxaban 2.5 mg tablet (Xarelto) 2.5 mg PO BID #5 tabs 12/05/23 01/17/24 Rx Allergies Allergy/AdvReac Type Severity Reaction Status Date / Time [place] Allergy Unknown Sneezing Uncoded 01/29/24 10:20 Vital Signs Vital Signs - 24 hr 01/29/24 10:21 Temperature 97.6 F Pulse Rate 91 Respiratory Rate 20 Blood Pressure 136/92 H Pulse Oximetry 100 Oxygen Delivery Room Air Exam Const: General: comfortable and no acute distress HENMT: Face/Nose/Sinus: Normal nares present Eyes: General: appearance normal, both eyes and all related structures Neck: Neck: no JVD Resp: Auscultation: clear to auscultation bilaterally Cardio: Rate: regular rate Rhythm: regular rhythm GI: Inspection: non-distended GI Palp: Yes Soft to palpation Skin: General skin exam: normal color Neuro: General: gait normal Speech: normal speech Extrem: General: normal to inspection Psych: Mental Status: mental status grossly normal Assessment and Plan Assessment and plan (1) BRBPR (bright red blood per rectum): Code(s): K62.5 - Hemorrhage of anus and rectum Status: Acute Assessment and Plan: colonoscopy
[2024-01-29 11:03] VITALS: BP 95/67; PULSE 72; RESP 20; O2SAT 98
[2024-01-29 11:13] VITALS: BP 93/67; PULSE 63; RESP 20; O2SAT 97
[2024-01-29 11:20] VITALS: BP 101/70; PULSE 62; RESP 20; O2SAT 98
== END 2024-01-29 11:29 | disposition home or self-care (01) ==
PROVIDERS: PCP Family Medicine; Visit Provider Internal Medicine Gastroenterology
PROC: 0DJD8ZZ Inspection of Lower Intestinal Tract, Via Natural or Artificial Opening Endoscopic (ICD-10-PCS; CPT 45378; principal; 2024-01-29 11:30)
DX: K64.8 Other hemorrhoids (principal); Z79.01 Long term (current) use of anticoagulants; Z86.718 Personal history of other venous thrombosis and embolism
CPT/HCPCS: 45378; J2704; J7120

== ENCOUNTER 2024-02-11 06:40 | Outpatient (CLI) | payer MEDICARE, SELFPAY ==
[2024-02-11 07:27] LABS: Alanine Aminotransferase 13 U/L (6-50); Albumin Level 4.1 g/dL (3.5-5.1); Alkaline Phosphatase 44 U/L (38-126); Anion Gap 4 mmol/L (4-12); Aspartate Amino Transferase 24 U/L (17-59); Bilirubin,Total 0.7 mg/dL (0.2-1.3); Blood Urea Nitrogen 21 mg/dL (9-20); Calcium 8.8 mg/dL (8.4-10.2); Carbon Dioxide 25 mmol/L (22-30); Chloride 106 mmol/L (98-107); Estimated Glomerular Filt Rate 55; Glucose 94 mg/dL (65-110); Potassium 4.3 mmol/L (3.4-5.0); Sodium 135 mmol/L (137-145)
[2024-02-11 09:08] LABS: Hematocrit 41.6 % (42.0-52.0); Mean Corpuscular HGB Conc 33.7 g/dl (32-36); Mean Corpuscular Hemoglobin 30.8 pg (26-34); Mean Corpuscular Volume 91.4 fl (80-100); Mean Platelet Volume 10.9 fl (7.4-10.4); Platelet Count Result 214 k/mm3 (150-375); Red Blood Count 4.55 M/mm3 (4.6-6.20); Red Cell Distribution Width 12.4 % (11.5-14.5); White Blood Count 6.4 K/mm3 (4.5-10.0)
[2024-02-11 10:06] LABS: Prostate Specific Antigen 2.7 ng/mL (< OR = 4.0)
== END 2024-02-11 06:41 | disposition home or self-care (01) ==
PROVIDERS: PCP Family Medicine; Visit Provider Family Medicine
DX: E78.5 Hyperlipidemia, unspecified (principal); Z12.5 Encounter for screening for malignant neoplasm of prostate
CPT/HCPCS: 36415; 80053; 84153; 85027; G0103

== ENCOUNTER 2024-08-19 06:39 | Outpatient (CLI) | payer MEDICARE, SELFPAY ==
[2024-08-19 07:14] LABS: Hematocrit 42.1 % (42.0-52.0); Hemoglobin 14.2 g/dL (14.0-18.0); Mean Corpuscular HGB Conc 33.7 g/dl (32-36); Mean Corpuscular Hemoglobin 31.3 pg (26-34); Mean Corpuscular Volume 92.7 fl (80-100); Mean Platelet Volume 10.3 fl (7.4-10.4); Platelet Count Result 216 k/mm3 (150-375); Red Blood Count 4.54 M/mm3 (4.6-6.20); Red Cell Distribution Width 12.1 % (11.5-14.5); White Blood Count 6.6 K/mm3 (4.5-10.0)
[2024-08-19 07:35] LABS: Alanine Aminotransferase 17 U/L (6-50); Albumin Level 4.1 g/dL (3.5-5.1); Alkaline Phosphatase 44 U/L (38-126); Anion Gap 3 mmol/L (4-12); Aspartate Amino Transferase 27 U/L (17-59); Bilirubin,Total 0.7 mg/dL (0.2-1.3); Blood Urea Nitrogen 26 mg/dL (9-20); Calcium 8.8 mg/dL (8.4-10.2); Carbon Dioxide 28 mmol/L (22-30); Chloride 102 mmol/L (98-107); Cholesterol 198 mg/dL (0-200); Estimated Glomerular Filt Rate > 60; Glucose 95 mg/dL (65-110); HDL Direct 53 mg/dL; Potassium 4.4 mmol/L (3.4-5.0); Sodium 133 mmol/L (137-145); Triglycerides 75 mg/dL (<150)
[2024-08-19 07:46] LABS: LDL Cholesterol Direct 96 mg/dL
[2024-08-19 10:24] LABS: Prostate Specific Antigen 2.4 ng/mL (< OR = 4.0)
== END 2024-08-19 06:40 | disposition home or self-care (01) ==
PROVIDERS: PCP Family Medicine; Visit Provider Family Medicine
DX: N40.1 Benign prostatic hyperplasia with lower urinary tract symptoms (principal); R39.14 Feeling of incomplete bladder emptying; R39.15 Urgency of urination; R33.9 Retention of urine, unspecified; R35.1 Nocturia; E78.5 Hyperlipidemia, unspecified; I49.3 Ventricular premature depolarization; D49.2 Neoplasm of unspecified behavior of bone, soft tissue, and skin; J45.909 Unspecified asthma, uncomplicated; K64.8 Other hemorrhoids; N52.9 Male erectile dysfunction, unspecified; Z12.5 Encounter for screening for malignant neoplasm of prostate
CPT/HCPCS: 36415; 80053; 80061; 84153; 85027; G0103

== ENCOUNTER 2025-02-24 06:47 | Outpatient (CLI) | payer MEDICARE, SELFPAY ==
--- OUTSIDE RECORDS SUMMARY | 2025-02-24 06:50 | XMS_ITS | Clinical Summary ---
Author Organization [facility] Address [address] [place] [address] Care Team Providers Care Sand Analyst Name Role Phone Verna, Gautam Timothy PINA Primary Care Provider [phone] [facility] [employer] [facility],non-owned Affiliates and Associated Physician Practices is amultiple site organization consisting of ambulatory clinics and hospital sitesin [place], [place], [place] and [place]. This disclosure is being madepursuant to the Care Everywhere program and may not contain all information available regarding this patient. Last updated 18.[facility] Allergies No known active allergies Immunizations Immunization Administration Dates Next Due FLU VACCINE QUAD IIV4 PF ID 07/16/2016 INFLUENZA VACCINE, QUADR. (F LUZONE; FLULAVAL; FLUARIX; AFLURIA QUADRIVALENT; 6MO+), 0.5 ML (IIV4) 08/02/2017 Social History Tobacco Use Types Packs/Day Years Used Date Smoking Tobacco: Never Assessed Sex and Gender Information Value Date Recorded Sex Assigned at Not on file Legal Sex Male 11:34 AM CDT Gender Identity Not on file Sexual Orientation Not on file Plan of Treatment Health Maintenance Due Date Last Done Comments COLOGUARD (AGES 45-75) - COL ON CA SCREENING 1953 COLON MONITORING 1953 COLONOSCOPY - COLON CA SCREENING 1953 CT COLONOGRAPHY - COLON CA SCREENING 1953 Colorectal Cancer Screening 1953 FIT - COLON CA SCREENING 1953 FLEX SIG - COLON CA SCREENING 1953 LIPID TESTING 1953 HEPATITIS C SCREENING 08/09/1971 DTAP/TDAP/TD VACCINES (1 - Tdap) 1972 PNEUMOCOCCAL VACCINE 50+ (1 of 1 - PCV) 2003 ZOSTER VACCINE (1 of 2) 2003 COVID-19 VACCINE (1 - 2023-2 5 season) 2024 DEPRESSION SCREENING 09/16/2024 INFLUENZA VACCINE (Season Ended) 2025 08/02/2017, 07/16/2016 Respiratory Syncytial Virus (RSV) Vaccine Pt: or over 60 yrs (1 - 1-dose 75+ series) 2028 HEPATITIS B VACCINE Aged Out No longe r eligible based on patient's age to complete this topic HIB VACCINE Aged Out No longer eligi ble based on patient's age to complete this topic HPV VACCINE Aged Out No longer eligi ble based on patient's age to complete this topic MENINGOCOCCAL (Group B) VACCINE SHARED DECISION-MAKING Aged Out No longer eligible based on patient's age to complete this topic MENINGOCOCCAL GROUPS A/C/Y/W VACCINE Aged Out No longer eligible b ased on patient's age to complete this topic Insurance Member Subscriber Plan / Payer (Ef fective 2013-Present) Name:Natty Tomlin Relation to Subscriber:Self Name:Natty Tomlin Payer ID:[id number] ([facility]) Type:[facility] Address: [facility] [address] [place] [address] Care Teams Sand Analyst Relationship Specialty Start Date End Date Gautam Gillespie DO [address] [place] [id number] PCP - General 02/06/22
[2025-02-24 07:12] LABS: Hemoglobin 13.7 g/dL (14.0-18.0); Mean Corpuscular HGB Conc 32.6 g/dl (32-36); Mean Corpuscular Volume 92.1 fl (80-100); Mean Platelet Volume 9.9 fl (7.4-10.4); Platelet Count Result 215 k/mm3 (150-375); Red Blood Count 4.56 M/mm3 (4.6-6.20); Red Cell Distribution Width 12.3 % (11.5-14.5); White Blood Count 6.4 K/mm3 (4.5-10.0)
[2025-02-24 08:12] LABS: Alanine Aminotransferase 16 U/L (6-50); Alkaline Phosphatase 47 U/L (38-126); Anion Gap 5 mmol/L (4-12); Aspartate Amino Transferase 28 U/L (17-59); Bilirubin,Total 0.8 mg/dL (0.2-1.3); Blood Urea Nitrogen 21 mg/dL (9-20); Calcium 9.1 mg/dL (8.4-10.2); Carbon Dioxide 27 mmol/L (22-30); Chloride 103 mmol/L (98-107); Estimated Glomerular Filt Rate > 60; Glucose 98 mg/dL (65-110); Potassium 4.7 mmol/L (3.4-5.0); Prostate Specific Antigen 2.9 ng/mL (< OR = 4.0); Sodium 135 mmol/L (137-145); Total Protein 7.1 g/dL (6.3-8.2)
[2025-02-27 09:09] LABS: Vitamin B6 35.2 ng/mL (2.1-21.7)
== END 2025-02-24 06:48 | disposition home or self-care (01) ==
PROVIDERS: PCP Family Medicine; Visit Provider Family Medicine
DX: E72.11 Homocystinuria (principal); Z12.5 Encounter for screening for malignant neoplasm of prostate; N40.0 Benign prostatic hyperplasia without lower urinary tract symptoms; E78.5 Hyperlipidemia, unspecified; E53.8 Deficiency of other specified B group vitamins; J45.909 Unspecified asthma, uncomplicated; E87.1 Hypo-osmolality and hyponatremia; Z86.718 Personal history of other venous thrombosis and embolism
CPT/HCPCS: 36415; 80053; 82607; 84153; 84207; 85027

== ENCOUNTER 2025-03-08 06:39 | Outpatient (CLI) | payer MEDICARE, SELFPAY ==
[2025-03-08 07:36] LABS: Iron 56 ug/dL (49-181)
[2025-03-08 07:46] LABS: Percent Iron Saturation 19 % (20-50)
== END 2025-03-08 06:40 | disposition home or self-care (01) ==
PROVIDERS: PCP Family Medicine; Visit Provider Family Medicine
DX: E53.8 Deficiency of other specified B group vitamins (principal); D64.9 Anemia, unspecified; J45.909 Unspecified asthma, uncomplicated; I49.3 Ventricular premature depolarization; E78.5 Hyperlipidemia, unspecified
CPT/HCPCS: 36415; 82607; 82728; 83540; 83550